=== PATIENT | female | born 1980 | race American Indian/Alaskan Native ===

== ENCOUNTER 2016-10-29 17:29 | Emergency (ER) | payer OTHER ==
[2016-10-29 17:37] VITALS: O2SAT 99
--- NOTE | 2016-10-29 17:56 | C.PDOC ---
History Of Present Illness Patient is a 36 y/o female, A3, 5 weeks , presents to the emergency department for evaluation of vaginal spotting and suprapubic cramping. Denies having ultrasound done previously. Otherwise, denies any dysuria, nausea, vomiting, or fever. Time Seen by Provider: 10/29/16 17:42 Chief Complaint (Nursing): Abdominal Pain History Per: Patient History/Exam Limitations: no limitations Onset/Duration Of Symptoms: Days Current Symptoms Are (Timing): Still Present Location Of Pain/Discomfort: Suprapubic Radiation Of Pain To:: None Quality Of Discomfort: Cramping Associated Symptoms: denies: Fever, Chills, Nausea, Vomiting, Diarrhea, Loss Of Appetite, Back Pain, Chest Pain, Constipation, Urinary Symptoms Exacerbating Factors: None Alleviating Factors: None Recent travel outside of the [place]: No Additional History Per: Patient : 6 Para: 2 Miscarriage: 3 Past Medical History Reviewed: Historical Data, Nursing Documentation, Vital Signs Vital Signs: Last Vital Signs Temp 98.5 F 10/29/16 17:35 Pulse 90 10/29/16 17:35 Resp 18 10/29/16 17:35 BP 108/74 10/29/16 17:35 Pulse Ox 99 10/29/16 18:41 Family History: States: Unknown Family Hx - Social History Hx Alcohol Use: No Hx Substance Use: No - Immunization History Hx Tetanus Toxoid Vaccination: No Hx Influenza Vaccination: No Hx Pneumococcal Vaccination: No Review Of Systems Except As Marked, All Systems Reviewed And Found Negative. Constitutional: Negative for: Fever, Chills Cardiovascular: Negative for: Chest Pain, Palpitations, Orthopnea, Edema Respiratory: Negative for: Cough, SOB with Excertion, Wheezing Gastrointestinal: Positive for: Abdominal Pain. Negative for: Nausea, Vomiting , Diarrhea, Constipation Genitourinary: Positive for: Vaginal Bleeding, Other (vaginal spotting ). Negative for: Dysuria, Frequency, Incontinence, Hematuria Musculoskeletal: Negative for: Back Pain Skin: Negative for: Rash Neurological: Negative for: Weakness, Numbness Physical Exam - Physical Exam Appears: Well, Non-toxic, No Acute Distress Skin: Normal Color, Warm, Dry Head: Atraumatic, Normacephalic Eye(s): bilateral: Normal Inspection Neck: Normal ROM, Supple Chest: Symmetrical Cardiovascular: Rhythm Regular, No Murmur Respiratory: Normal Breath Sounds, No Rales, No Rhonchi, No Wheezing Gastrointestinal/Abdominal: Normal Exam, Soft, No Tenderness, No Mass, No Distention, No Guarding, No Rebound Back: Normal Inspection, No CVA Tenderness Extremity: Normal ROM Extremity: Bilateral: Atraumatic, Normal ROM Neurological/Psych: Oriented x3, Normal Speech, Normal Cognition ED Course And Treatment - Laboratory Results Result Diagrams: 10/29/16 18:05 10/29/16 18:05 O2 Sat by Pulse Oximetry: 99 (on RA) Pulse Ox Interpretation: Normal Medical Decision Making Medical Decision Making: Differential dx includes but not limited to: threatened vs ectopic --labs, including bhcg, and type/screen --ua --transvaginal ultrasound 6:37PM U/s shows "Intrauterine gestational sac compatible with gestational age 5 weeks 6 days. 2 mm yolk sac. A pole is not seen. Correlate clinically including INSECTICIDE SPRAYER consultation, beta HCG, and close interval follow-up as indicated. 2.6 cm probable right corpus luteal cyst." Blood type O+. CBC and CMP WNL. bhcg 16,708 0700PM Will sign out to Dr. Huerta to follow-up urinalysis. Disposition - Disposition Disposition Time: 19:00 Condition: FAIR Instructions: Threatened Miscarriage (ED) - Clinical Impression Clinical Impression: Vaginal bleeding in , Threatened - Scribe Statement The provider has reviewed the documentation as recorded by the Vidhyaibosmani Jose All medical record entries made by the Vidhyaibe were at my direction and personally dictated by me. I have reviewed the chart and agree that the record accurately reflects my personal performance of the history, physical exam, medical decision making, and the department course for this patient. I have also personally directed, reviewed, and agree with the discharge instructions and disposition.
[2016-10-29 18:12] LABS: BASO # 0.1 K/uL (0.0-0.2); BASO % 0.8 % (0.0-2.0); EOS # 0.1 K/uL (0.0-0.7); HEMOGLOBIN 12.1 g/dL (11.0-16.0); LYMPH # 1.9 K/uL (1.0-4.3); LYMPH % 30.9 % (20.0-40.0); MEAN CELL VOLUME 83.6 fL (81.0-99.0); MEAN CORPUSCULAR HEMOGLOBIN 27.2 pg (27.0-31.0); MEAN CORPUSCULAR HGB CONC 32.6 g/dL (33.0-37.0); MONO # 0.5 K/uL (0.0-0.8); MONO % 8.1 % (0.0-10.0); NEUT # 3.6 K/uL (1.8-7.0); NEUT % 58.2 % (50.0-75.0); NRBC % 0.2 % (0.0-2.0); RBC 4.45 Mil/uL (3.80-5.20); RED CELL DISTRIBUTION WIDTH 17.5 % (11.5-14.5); WHITE BLOOD COUNT 6.2 K/uL (4.8-10.8)
[2016-10-29 18:20] LABS: ALBUMIN 3.8 g/dL (3.5-5.0)
[2016-10-29 18:23] LABS: ALB/GLOB RATIO 1.2 (1.0-2.1); AST/SGOT 12 U/L (14-36); GFR AFRICAN-AMERICAN > 60; GFR NON-AFRICAN AMERICAN > 60
[2016-10-29 18:24] LABS: ALT/SGPT 24 U/L (9-52); BLOOD UREA NITROGEN 11 mg/dL (7-17); CALCIUM 9.1 mg/dl (8.6-10.4)
--- NOTE | 2016-10-29 18:35 | US ---
Indication: , vaginal bleeding Comparison: None available Technique: Real-time transabdominal pelvic ultrasound was performed. In addition a transvaginal pelvic ultrasound was necessary to better depict pelvic anatomy. Findings: The uterus measures approximately 9.4 x 6.9 x 7.1 cm. Anteverted. Cervix length measures approximately 3.4 cm. Intrauterine gestational sac measures approximately 1.6 cm and is compatible with a gestational age of 5 weeks 6 days. 2 mm yolk sac. pole is not visualized. The right ovary measures 4.4 x 2.1 x 3.6 cm and contains 2.4 x 2.2 x 2.6 cm probable corpus luteal cyst. The left ovary measures 2.7 x 1.9 x 2.6 cm. Blood flow was demonstrated to both ovaries. Impression: Intrauterine gestational sac compatible with gestational age 5 weeks 6 days. 2 mm yolk sac a pole is not seen. Correlate clinically including HE[employer]GE consultation, beta HCG, and close interval follow-up as indicated. 2.6 cm probable right corpus luteal cyst.
[2016-10-29 19:02] VITALS: BP 122/73; PULSE 73; RESP 16; TEMP 99.1
[2016-10-29 19:02] LABS: SQUAMOUS EPITHIAL 9 /hpf (0-5); URINE BACTERIA OCC (<OCC); URINE BILIRUBIN NEGATIVE (NEGATIVE); URINE BLOOD 2+ (NEGATIVE); URINE CLARITY Hazy (Clear); URINE COLOR Yellow (YELLOW); URINE GLUCOSE (UA) NORMAL (Normal); URINE LEUKOCYTE ESTERASE 2+ Leu/uL (Negative); URINE NITRATE NEGATIVE (NEGATIVE); URINE PROTEIN NEGATIVE (NEGATIVE); URINE UROBILINOGEN NORMAL mg/dL (0.2-1.0)
== END 2016-10-29 19:43 | disposition home or self-care (01) ==
LOC: C.ER 17:29
DX: O20.0 Threatened abortion (principal); O23.41 Unspecified infection of urinary tract in pregnancy, first trimester; Z3A.01 Less than 8 weeks gestation of pregnancy

== ENCOUNTER 2016-12-04 22:05 | Emergency (ER) | payer SELFPAY ==
[2016-12-04 22:14] VITALS: TEMP 98.1
[2016-12-04] MEDS ORDERED: Sodium Chloride 0.9% 1,000 ML IV ONE (22:29)
--- NOTE | 2016-12-04 22:29 | C.PDOC ---
History Of Present Illness 36 y/o female who is 11 weeks and , c/o LLQ abdominal pain for the past couple of days. Denies fever, chills, nausea, vomiting, vaginal bleeding, dysuria, or dizziness. Time Seen by Provider: 12/04/16 22:29 Chief Complaint (Nursing): Abdominal Pain History Per: Patient History/Exam Limitations: no limitations Onset/Duration Of Symptoms: Days Current Symptoms Are (Timing): Still Present Severity: Mild Pain Scale Rating Of: 4 Location Of Pain/Discomfort: LLQ Radiation Of Pain To:: None Quality Of Discomfort: "Pain" Associated Symptoms: denies: Fever, Chills Exacerbating Factors: None Alleviating Factors: None Recent travel outside of the [place]: No Additional History Per: Patient Abnormal Vaginal Bleeding: No : 3 Para: 2 Past Medical History Reviewed: Historical Data, Nursing Documentation, Vital Signs Vital Signs: Last Vital Signs Temp 98.1 F 12/04/16 22:11 Pulse 81 12/04/16 22:11 Resp 18 12/04/16 22:11 BP 104/68 12/04/16 22:11 Pulse Ox 100 12/04/16 22:47 Family History: States: Unknown Family Hx - Social History Hx Alcohol Use: No Hx Substance Use: No - Immunization History Hx Tetanus Toxoid Vaccination: No Hx Influenza Vaccination: No Hx Pneumococcal Vaccination: No Review Of Systems Constitutional: Negative for: Fever, Chills, Weakness Cardiovascular: Negative for: Chest Pain Respiratory: Negative for: Shortness of Breath Gastrointestinal: Positive for: Abdominal Pain (LLQ). Negative for: Nausea, Vomiting Genitourinary: Negative for: Dysuria, Vaginal Bleeding Skin: Negative for: Rash Neurological: Negative for: Dizziness Psych: Negative for: Anxiety Physical Exam - Physical Exam Appears: Non-toxic, No Acute Distress Skin: Warm, Dry Head: Normacephalic Oral Mucosa: Moist Neck: Trachea Midline, Supple Cardiovascular: Rhythm Regular Respiratory: No Rales, No Rhonchi, No Wheezing Gastrointestinal/Abdominal: Soft, Distention, Other (Fundus 3cm below the subxiphoid) Back: No CVA Tenderness Neurological/Psych: Oriented x3, Normal Speech, Normal Cognition Gait: Steady ED Course And Treatment - Laboratory Results Result Diagrams: 12/04/16 22:44 12/04/16 22:44 O2 Sat by Pulse Oximetry: 100 (RA) Pulse Ox Interpretation: Normal Reevaluation Time: 23:44 Reassessment Condition: Improved Disposition Counseled Patient/Family Regarding: Studies Performed, Diagnosis, Need For Followup, Rx Given - Disposition Referrals: [facility] [Outside] [facility] [Outside] Disposition: HOME/ ROUTINE Disposition Time: 22:29 Condition: FAIR Additional Instructions: Please return if symptoms recur Prescriptions: Nitrofurantoin Macrocrystals [Macrobid] 1 cap PO BID #14 cap Instructions: Abdominal Pain in (ED), Urinary Tract Infection in (ED) Forms: [facility] ([place]) - Clinical Impression Clinical Impression: UTI (urinary tract infection) during , Abdominal pain during - Scribe Statement The provider has reviewed the documentation as recorded by the Scribe Jayna zapata All medical record entries made by the Scribe were at my direction and personally dictated by me. I have reviewed the chart and agree that the record accurately reflects my personal performance of the history, physical exam, medical decision making, and the department course for this patient. I have also personally directed, reviewed, and agree with the discharge instructions and disposition.
[2016-12-04 23:17] LABS: BASO % 0.5 % (0.0-2.0); EOS # 0.1 K/uL (0.0-0.7); EOS % 1.1 % (0.0-4.0); HEMATOCRIT 36.5 % (34.0-47.0); LYMPH # 1.8 K/uL (1.0-4.3); MEAN CELL VOLUME 83.8 fL (81.0-99.0); MEAN CORPUSCULAR HEMOGLOBIN 27.4 pg (27.0-31.0); MEAN CORPUSCULAR HGB CONC 32.6 g/dL (33.0-37.0); MEAN PLATELET VOLUME 9.4 fL (7.2-11.7); MONO # 0.4 K/uL (0.0-0.8); MONO % 5.6 % (0.0-10.0); RED CELL DISTRIBUTION WIDTH 14.4 % (11.5-14.5); WHITE BLOOD COUNT 6.5 K/uL (4.8-10.8)
[2016-12-04 23:22] LABS: RBC URINE 13 /hpf (0-3); TRANSITIONAL EPITHIAL < 1 /hpf (0-3); URINE BACTERIA OCC (<OCC); URINE BILIRUBIN NEGATIVE (NEGATIVE); URINE COLOR Yellow (YELLOW); URINE GLUCOSE (UA) NORMAL (Normal); URINE KETONE NEGATIVE (NEGATIVE); URINE PROTEIN NEGATIVE (NEGATIVE); URINE UROBILINOGEN NORMAL mg/dL (0.2-1.0); WBC URINE 13 /hpf (0-5)
[2016-12-04 23:23] LABS: URINE BLOOD 2+ (NEGATIVE); URINE LEUKOCYTE ESTERASE 1+ Leu/uL (Negative)
[2016-12-04 23:27] LABS: CHLORIDE 98 mmol/L (98-107); POTASSIUM 3.8 mmol/L (3.6-5.2); SODIUM 132 mmol/L (132-148)
[2016-12-04 23:29] LABS: AST/SGOT 20 U/L (14-36); BILIRUBIN,TOTAL 0.5 mg/dL (0.2-1.3); BLOOD UREA NITROGEN 9 mg/dL (7-17); CARBON DIOXIDE 22 mmol/L (22-30); GFR AFRICAN-AMERICAN > 60; TOTAL PROTEIN 6.9 g/dL (6.3-8.3)
[2016-12-04 23:30] LABS: ALKALINE PHOSPHATASE 33 U/L (38-126); ALT/SGPT 19 U/L (9-52); GLUCOSE,RANDOM 104 mg/dL (65-105)
--- NOTE | 2016-12-04 23:56 | US ---
EXAM: US First Trimester, Transabdominal CLINICAL HISTORY: 36 years old, female; Pain; complicated by abdominal or pelvic pain; Left lower quadrant; First trimester; Gestational age or lmp: [id number]; ; Additional info: Llq pain TECHNIQUE: Real-time transabdominal obstetrical ultrasound of the maternal pelvis and a first trimester with image documentation. COMPARISON: US - PREG 1ST TRIMESTER/OB TV 10/29/2016 6:02:47 PM FINDINGS: Gestation: A single intrauterine gestation is identified with a crown-rump length measuring 3.6 cm, corresponding to an approximate gestational age of 10 weeks and 4 days. cardiac activity is identified at a rate of 156 beats per minute. Placenta/amniotic fluid: Cannot be adequately evaluated due to the early gestational age. Uterus/cervix: Cervix measures 4.5 cm, and is closed. Ovaries: The left ovary is unremarkable in echogenicity and size measuring 2.8 x 2.5 x 2.1 cm. The right ovary is unremarkable in echogenicity and size measuring 2.8 x 3.3 x 2.2 cm Free fluid: No free fluid is detected on the submitted images. IMPRESSION: Single intrauterine gestation with an approximate gestational age of 10 weeks and 4 days. cardiac activity is identified.
[2016-12-05 00:05] VITALS: BP 112/76; PULSE 79; RESP 16; O2SAT 98
== END 2016-12-05 00:13 | disposition home or self-care (01) ==
LOC: SUPCPDRO 22:05 → C.ER 22:05
DX: O23.41 Unspecified infection of urinary tract in pregnancy, first trimester (principal); R10.32 Left lower quadrant pain; Z3A.10 10 weeks gestation of pregnancy
CPT/HCPCS: 76801; 80053; 81001; 84702; 85025; 85610; 85730; 86850; 86900; 87086; 96360; 99284; J7040